=== PATIENT | female | born 1950 | race Caucasian/White ===

== ENCOUNTER 2025-03-28 08:24 | Outpatient (REF) | payer OTHER, SELFPAY | END 2025-03-28 08:25 | disposition home or self-care (01) | LOC: HO.HPHYSR 08:24 | PROVIDERS: PCP Internal Medicine; Visit Provider Physical Medicine & Rehabilitation | DX: M54.16 Radiculopathy, lumbar region (principal) | CPT/HCPCS: 64483; J2003; J3301; Q9967 ==

== ENCOUNTER 2025-03-28 08:24 | Outpatient (AMB) | payer OTHER, SELFPAY ==
--- NOTE | 2025-03-28 08:28 | A.PHYSOV ---
Vital Signs 03/28/25 08:30 Height 5 ft 6.5 in Weight 160 lb BMI 25.4 BP 152/90 H Pulse 80 Temp 97.9 F Intake Visit Reasons: Bilateral Lumbar Transforaminal Epidural L5 Allergies No Known Allergies Allergy (Verified 03/28/25 08:28) [facility] Medical History (Updated 03/28/25 @ 08:41 by Giles Mcclelland DO) Lumbar radiculitis Surgical History (Updated 03/28/25 @ 08:30 by Sari Jackson MA) History of thyroidectomy History of cholecystectomy Social History (Updated 03/28/25 @ 08:29 by Sari Jackson MA) Household Members: Spouse Alcohol intake: current Alcohol intake frequency: holidays/special occasions only Patient Tobacco Use Status: Never used Tobacco Current occupational status: retired Physical Exam Vital Signs: Last Vital Signs Temp 97.9 F 03/28/25 08:30 Pulse 80 03/28/25 08:30 BP 152/90 H 03/28/25 08:30 BMI result Body Mass Index 25.4 Office Procedures Procedure Details: Procedure performed: Bilateral L5 transforaminal epidural steroid injection Preop diagnosis: Lumbar radiculitis Postop diagnosis: The same Anesthesia: Local After informed consent was obtained, patient was placed on the procedure table in a prone position. Skin over lumbosacral area was prepped and draped in usual sterile manner. Right L5 pedicle was visualized utilizing fluoroscopy. 5 inch 22 gauge spinal needle was introduced percutaneously and advanced towards the pedicle at about 6 o'clock position. Once level of neural foramina was reached, needle placement was verified utilizing 3 cc of Omnipaque contrast solution. Excellent flow through the neural foramina and epidural spread was identified without evidence of vascular uptake. Total volume of 6 cc containing 2 cc of 1% lidocaine, 40 mg of triamcinolone and normal saline solution were injected after negative aspiration for blood and cerebrospinal fluid. Identical procedure was repeated on the opposite side. Radiation exposure was documented in the chart. 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 80 mg epidural 2 mL [id number] [employer] Total Dispensed Waste 2 mL 0 % lidocaine (PF) 10 mg/mL (1 %) injection solution Performing Provider: Giles Mcclelland DO Performing Location: [facility] Administered by: Giles Mcclelland DO on 03/28/25 08:41 Dose Route Admin Location Dispensed Lot Number Expiration Date [facility] Sw[employer] Maintenance Supervisor 50 mg epidural 5 mL [id number] [facility] Total Dispensed Waste 5 mL 0 % Omnipaque 300 300 mg iodine/mL intravenous solution Performing Provider: Giles Mcclelland DO [facility] Administered by: Giles Mcclelland DO on 03/28/25 08:[address]ose [address] Admin Location Dispensed Lot Number Expiration Date [facility] Swimming Pool Maintenance 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
[2025-03-28 08:30] VITALS: BP 152/90; PULSE 80; TEMP 36.6; BMI 25.4
--- OUTSIDE RECORDS SUMMARY | 2025-03-28 08:32 | XMS_ITS | Encounter Summary ---
Author Organization [facility] Address [address] [place] [address] Care Team Providers Care Manager Group Name Role Phone Jerrica Tejada MD Primary Care Provider [phone] Encounter Details Date Type Department Care Team (Late st Contact Info) Description 01/24/2025 Results Follow-Up Adult Medicine [facility] [address], [place] [phone] Jerrica Tejada MD [address], [place] Social History Tobacco Use Types Packs/Day Years Used Date Smoking Tobacco: Never Smokeless Tobacco: Never Alcohol Use Standard Drinks/Week Comments Yes 0 (1 standard drink = 0.6 oz pur e alcohol) Housing Instability Answer Date Recorde d Are you worried that in the next 2 months you may not have stable housing? No 06/28/2024 Food Access & Nutrition Answer Date Rec orded Do you have access to a vari ety of food including fruits and vegetables? Yes 06/28/2024 Health Literacy Answer Date Recorded How often do you need to hav e someone help you when you read instructions, pamphlets, or other written material from your doctor or pharmacy? Never 06/28/2024 Caregiver: How often do you need to have someone help you when you read instructions, pamphlets, or other written material from your doctor or pharmacy? Not on file 06/28/2024 Financial Risk Answer Date Recorded How hard is it for you to pa y for the very basics like food, housing, medical care, and air conditioning / heating? Patient declined 06/28/2024 Transportation Answer Date Recorded Has the lack of transportati on kept you from meetings, work, or from getting things needed for daily living? Patient declined 06/28/2024 Has the lack of transportati on kept you from medical appointments or from getting medications? Patient declined 06/28/2024 Social Isolation Answer Date Recorded How often do you feel lonely or isolated from th ose around you? Never 06/28/2024 Food Risk Answer Date Recorded Within the past 12 months we worried whether our food would run out before we got money to buy more. Never true 06/28/2024 Within the past 12 months th e food we bought just didn't last and we didn't have money to get more. Never true 06/28/2024 Dependent Care Answer Date Recorded Do you need help finding or paying for care for your loved ones. For example, children's aide or elderly care for an older adult? No 06/28/2024 Education Answer Date Recorded Do you think completing more education or training, like finishing a GED, going to college, or learning a trade, would be helpful for you? N/A 06/28/2024 Employment and Income Answer Date Recor ded During the last four weeks, have you been actively looking for work? No 06/28/2024 Living Situation Answer Date Recorded What is your living situation? Unrecognized valu e 06/28/2024 Comments Unknown Sex and Gender Information Value Date Recorded Sex Assigned at Not on file Legal Sex Female 6:57 PM EST Gender Identity Not on file Sexual Orientation Not on file documented as of this encounter Plan of Treatment Upcoming Encounters Date Type Department Care Team (Late st Contact Info) Description 07/25/2025 8:00 AM EDT Office Visit Adult Medicine [address] [phone] Fadia Whitman PA [address], [place] documented as of this encounter Visit Diagnoses Not on filedocumented in this encounter Additional Health Concerns Assessment Noted Time PHQ-9 Depression Total Score: 0 06/29/19 25 12:18 PM EDT documented as of this encounter Care Teams Manager Group Relationship Specialty Start Date End Date Jerrica Tejada MD [address] [place] [address] PCP - General 10/31/00 documented as of this encounter
--- OUTSIDE RECORDS SUMMARY | 2025-03-28 08:32 | XMS_ITS | Clinical Summary ---
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 07/12/2023 Active levothyroxine (SYNTHROID, LEVOTHROID) 100 mcg tablet Take 1 tablet (100 mcg total) by mouth 1 (one) time each day before breakfast. 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 Overview (01/23/2024): 02/2023 - REPEAT in 3 years Prediabetes 05/30/2021 Avulsion fracture of distal fibula 11/20/2019 Vitamin D deficiency 11/19/2018 Hypothyroidism 11/14/2018 Retinal hemorrhage 09/12/2012 Osteopenia 11/21/2008 Overview (01/23/2024): T-1.5 spine -1.3 hip 01/14 02/25 T score spine -1.0 hip -1.1 FRAX score 8.6% 10 year fracture risk 02/28 T score spine -1.0 hip -1.1 FRAX score 15% 10 year fracture risk Hypercholesteremia 07/18/2007 Overview (07/06/2024): ASCVD 17% (07/05/24) Mitral regurgitation 07/18/2007 Overview (01/23/2024): mild Urticaria 07/18/2007 Overview (01/23/2024): With angioedema Hx of thyroid cancer Overview (12/25/2024): Total thyroidectomy 09/25 History of squamous cell carcinoma of skin Overview (12/25/2024): SCC 05/24 left hand (in situ, at least) 04/23 right hand (moderately differentiated, superficially invasive) 08/16 left calf (in-situ) 09/08 left wrist/hand (keratoacanthoma type) History of actinic keratoses Overview (12/25/2024): Actinic keratosis 01/20 right hand (hypertrophic) Encounters Date Type Department Care Team Description 02/02/2025 Results Follow-Up [address] [phone] Jerrica Tejada MD 01/31/2025 10:45 AM EDT Office Visit [address] [phone] Jerrica Tejada MD Pharyngitis, unspecified etiology (Primary Dx); Acquired hypothyroidism; Hypercholesteremia; Prediabetes 01/31/2025 Nurse Triage [address] [phone] Jerrica Tejada MD 01/24/2025 8:45 AM EDT Office Visit [address] [phone] Jerrica Tejada MD Acquired hypothyroidism (Primary Dx); Hypercholesteremia; Prediabetes; Osteopenia, unspecified location; Vitamin D deficiency 01/24/2025 Results Follow-Up Adult [address] [phone] Jerrica Tejada MD from Last 3 Months Immunizations Immunization Administration Dates Next Due COVID-19 (Moderna/Spikevax) 12yo and older 01/13/2025,12/16/2023,01/09/2023 Influenza Quadravalent, 0.5m l (Fluzone High-dose) 65yo and older 01/09/2023,01/23/2022,03/19/2021 Influenza trivalent, 0.5mL ( Fluad) 65yo and older 12/16/2023,01/09/2023,01/23/2022,03/19,01/16/2020 Influenza trivalent, 0.5mL ( Fluzone High-dose) 65yo and older 01/13/2025,12/16/2023,01/16/2020,02/15 Moderna (age 6mo & older) Bi valent, COVID-19, 0.5 mL or 0.25 mL dosage 01/23/2022 Moderna SARS-CoV-2 COVID-19, mRNA, LNP-S, preservative free 01/09/2023 Pfizer (ages 12 & older) Biv alent, COVID-19 01/23/2022 Pneumococcal conjugate 13 va lent (Prevnar 13, PCV13) 2mo and older 11/02/2016 Pneumococcal polysaccharide 23 valent (Pneumovax 23) 2yo and older 12/25/2017 RSV, bivalent, protein subun it RSVpreF, 0.5mL, Preservative Free (Arexvy) 50yo and older 01/20/2023 Td Tetanus diptheria (Tdvax) 7yo and older 12/25/2017 Tdap Tetanus diptheria acell ular pertussis (Boostrix; Adacel) 7yo and older 02/19/2020,07/18/2007 Zoster Live 04/13/2012 Zoster recombinant (Shingrix ) 19yo and older 10/13/2020,02/14/2020 Surgical History Surgery Date Site/Laterality Comments COLONOSCOPY 01/2006 : negative CHOLECYSTECTOMY THYROIDECTOMY 09/13/2017 [facility] Medical History Medical History Date Comments Urticaria 07/18/2007 With angioedema Mitral regurgitation 07/18/2007 : mild Hypercholesteremia 07/18/2007 Osteopenia 11/21/2008 Retinal hemorrhage 09/12/2012 Actinic keratosis, hx of History of squamous cell car cinoma of skin 07/18/2007 SCC 05/24 left hand (in situ, at least) 04/23 right hand (moderately differentiated, superficially invasive) 08/16 left calf (in-situ) 09/08 left wrist/hand (keratoacanthoma type) History of actinic keratoses 05/24/2012 Act inic keratosis 01/20 right hand (hypertrophic) Hypothyroidism 11/14/2018 Vitamin D deficiency 11/19/2018 Hx of thyroid cancer Total thyro idectomy 09/25 Family History Medical History Relation Name Comments Coronary artery disease Brother x [address], HTN, HLD Hypertension Father mesothelioma Stroke Maternal Grandfather Stroke Maternal Grandmother Diabetes Mother CVA, HTN, HLD, heart valve problem Leukemia Paternal Grandfather Heart attack Paternal Grandmother +smoker Relation Name Status Comments Brother x 1 Father Maternal Grandfather Maternal Grandmother Mother Paternal Grandfather Paternal Grandmother Social History Tobacco Use Types Packs/Day Years Used Date Smoking Tobacco: Never Smokeless Tobacco: Never Tobacco Cessation:Counseling Given: Not Answered Alcohol Use Standard Drinks/Week Comments Yes 0 [...] care for your loved ones. For example, childcare director or elderly care for an older adult? [...] on file Sexual Orientation Not on file Obstetrics History Para Term AB IAB SAB Ectopic Multiple Livin g Live Births 1 1 1 1 Date Outcome GA Total Labor Labor/2nd/3rd Weight Sex Type Anes PTL Alissa A1 A5 Name Clin Term Last Filed Vital Signs Vital Sign Reading Time Taken Comments Blood Pressure 124/68 01/31/2025 10:47 AM EDT Pulse 88 01/31/2025 10:47 AM EDT Temperature 35.9 C (96.6 F) 01/31/2025 10:47 AM EDT Respiratory Rate 14 01/31/2025 10:47 AM EDT Oxygen Saturation 98% 01/31/2025 10:47 AM EDT Inhaled Oxygen Concentration - - Weight 73.6 kg (162 lb 3.2 oz) 01/31/2025 10:47 AM EDT Height 167.6 cm (5' 6 ) 01/31/2025 10:47 AM EDT Body Mass Index 26.18 01/31/2025 10:47 AM EDT Plan of Treatment Upcoming Encounters Date Type Department Care Team (Late st Contact Info) Description 07/25/2025 8:00 AM EDT Office Visit Adult Medicine [facility] [address] [place], [place] [phone] Fadia Whitman PA [address] [place], [place] Health Maintenance Due Date Last Done Comments Social Influencers of Health Screening 06/28/2025 06/28/2024 Falls Risk Assessment 07/05/2025 07/05/2024 COVID-19 Vaccine (9 - Pfizer risk season) 2025 01/13/2025, 12/16/2023, 01/09/2023, Additional history exists Colorectal Cancer Screening: Colonoscopy 02/15/2026 02/15/2023 Cholesterol Screening (Lipid Panel) 07/05/2029 07/05/2024, 07/06/2023 DTaP,Tdap,and Td Vaccines (4 - Td or Tdap) 02/18/2030 02/19/2020, 12/25/2017, 07/18/2007 Osteoporosis Screening (Bone Density Screening) 01/23/2034 01/24/2024, 01/24/2024, 02/16/2021, Additional history exists Hepatitis C Screening Completed 11/02/2016 Pneumococcal Vaccine: 50+ Years Completed 12/25/2017, 11/02/2016 Zoster Vaccines Completed 10/13/2020, 09/2019, 04/13/2012 RSV Immunization Adult Patients Completed 01/20/2023 Depression Screening Completed 06/28/2024 Breast Cancer Screening Discontinued 12/26/19, 12/18/2023, 12/18/2023, Additional history exists Influenza Vaccine Completed 01/13/2025, , 12/16/2023, Additional history exists Colorectal Cancer Screening: Stool Based Tests (FOBT/FIT) Discontinued HIB Vaccines Aged Out No longer eligi ble based on patient's age to complete this topic HPV Vaccines Aged Out No longer eligi ble based on patient's age to complete this topic Hepatitis A Vaccines Aged Out No long er eligible based on patient's age to complete this topic Hepatitis B Vaccines Aged Out No long er eligible based on patient's age to complete this topic IPV Vaccines Aged Out No longer eligi ble based on patient's age to complete this topic MMR Vaccines Aged Out No longer eligi ble based on patient's age to complete this topic Meningococcal ACWY Vaccine Aged Out N o longer eligible based on patient's age to complete this topic Meningococcal B Vaccine Aged Out No l onger eligible based on patient's age to complete this topic RSV Immunization Patients Under 20 months Aged Out No longer eligible based on patient's age to complete this topic Varicella Vaccines Aged Out No longer eligible based on patient's age to complete this topic Procedures Procedure Name Priority Date/Time Associated Diagnosis Comments STREP A PCR Routine 01/31/2025 11:21 AM EDT Pharyngitis, unspecified etiology RAPID STREP SCREEN WITH REFLEX CULTURE Routine 01/31/2025 Pharyngitis, unspecified etiology HEMOGLOBIN A1C Routine 01/24/2025 9:08 AM EDT Prediabetes MG MAMMO DIGITAL SCREENING W [place] BILAT Routine 12/25/2024 8:00 AM EDT Encounter for screening mammogram for breast cancer LIPID PANEL WITH REFLEX TO DIRECT LDL Routine 07/05/2024 10:36 AM EDT Hypercholesteremia DXA BONE DENSITY STUDY 1+ SITS AXIAL SKEL Routine 01/24/2024 10:56 AM EDT Other specified disorders of bone density and structure, unspecified site COLONOSCOPY Routine 02/15/2023 HEPATITIS C SCREENING Routine 11/02/2016 from Last 3 Months or Most Recently Relevant to Health Maintenance Results * Strep A molecular study (01/31/2025 11:21 AM EDT) GRP A Strep PCR Not Detected Not Detected LAB MICROBIOLOGY METHOD 01/31/2025 9:00 PM EDT [facility] Swab Structure of anterior region of neck / Unknown Non-blood Collection / Unknown 01/31/2025 11:21 AM EDT 01/31/2025 11:21 AM EDT us Jerrica Tejada MD LAB MICROBIOLOGY - GENERAL ORDER TANI Final Result Performing Organization Address City/[facility]/ZIP Co de Phone Number [facility] [address] [place] [address], [place] [phone] * Rapid strep screen with reflex culture (01/31/2025) Swab Structure of anterior region of neck / Unknown 01/31/2025 us Jerrica Tejada MD LAB MICROBIOLOGY - GENERAL ORDER TANI Final Result Performing Organization Address City/[facility]/ZIP Co de Phone Number EXTERNAL LAB (NON-INTERFACED) * Hemoglobin A1c (01/24/2025 9:08 AM EDT) Hemoglobin A1C 5.8 <6.5 % LAB CHEMISTRY METHOD 01/24/2025 12:37 PM EDT [facility] Mean Bld Glu Estim. 120 mg/dL LAB CHEMISTRY METHOD 01/24/2025 12:37 PM EDT [facility] Blood Venous blood specimen / Unknown Venipuncture / Unknown 01/24/2025 9:08 AM EDT 01/24/2025 9:08 AM EDT us Jerrica Tejada MD LAB BLOOD ORDERABLES Final Resul t Performing Organization Address City/[facility]/ZIP Co de Phone Number [facility] [address] [place] [address], [place] [phone] * MG Mammo Digital Screening w [place] bilat (12/25/2024 8:00 AM EDT) Anatomical Region Laterality Modality Breast Bilateral Mammography 12/26/2024 11:2 1 AM EDT Impressions 12/26/2024 11:24 AM EDT No mammographic evidence for malignancy. BI-RADS CATEGORY: 1 - NEGATIVE RECOMMENDATION: Screening bilateral mammogram is recommended in 1 year. Mammo Location: [facility], [address] [place] [address], [id number], . -------- FINAL REPORT -------- Dictated By: Lor Pinto Dictated Date: 12/26/2024 11:21 ET Assigned Physician: Lor Pinto Reviewed and Electronically Signed By: Lor Pinto Signed Date: 12/26/2024 11:24 ET Workstation ID: [id number] Transcribed By: Self Edit Transcribed Date: 12/26/2024 11:21 ET Narrative 12/26/2024 11:24 AM EDT Bilateral mammogram. CLINICAL: 74 years old, Female, routine annual exam. COMPARISON: Prior studies, latest from 12/18/2023. TECHNIQUE: Bilateral MLO and CC views were obtained digitally with 2-D C views and 3-D mammogram (digital breast tomosynthesis). Computer-aided detection was utilized in evaluation of this exam (CAD). FINDINGS: There is no evidence of suspicious mass or architectural distortion. No worrisome calcifications are evident. There has been no significant change from prior exam(s). BREAST DENSITY: B - There are scattered areas of fibroglandular density. Procedure Note Lor Pinto MD - 12/26/2024 Bilateral mammogram. CLINICAL: 74 years old, Female, routine annual exam. COMPARISON: Prior studies, latest from 12/18/2023. TECHNIQUE: Bilateral MLO and CC views were obtained digitally with 2-D Cviews and 3-D mammogram (digital breast tomosynthesis). Computer-aideddetection was utilized in evaluation of this exam (CAD). FINDINGS: There is no evidence of suspicious mass or architectural distortion. Noworrisome calcifications are evident. There has been no significantchange from prior exam(s). BREAST DENSITY: B - There are scattered areas of fibroglandular density. IMPRESSION: No mammographic evidence for malignancy. BI-RADS CATEGORY: 1 - NEGATIVE RECOMMENDATION: Screening bilateral mammogram is recommended in 1 year. Mammo Location: [facility], [address] [place] [address], [id number], . -------- FINAL REPORT -------- Dictated By: Lor Pinto Dictated Date: 12/26/2024 11:21 ET Assigned Physician: Lor Pinto Reviewed and Electronically Signed By: Lor Pinto Signed Date: 12/26/2024 11:24 ET Workstation ID: [id number] Transcribed By: Self Edit Transcribed Date: 12/26/2024 11:21 ET Jerrica Tejada MD IMG BI PROCEDURES Final Result * (ABNORMAL) Lipid panel with reflex to direct LDL (07/05/2024 10:36 AM EDT) Cholesterol 194 0 - 200 mg/dL LAB CHEMISTRY METHOD 07/05/2024 2:50 PM EDT [facility] Triglycerides 63 0 - 150 mg/dL LAB CHEMISTRY METHOD 07/05/2024 2:50 PM EDT [facility] HDL 66 >=40 mg/dL LAB CHEMISTRY METHOD 07/05/2024 2:50 PM T [facility] LDL Calculated 115(H) 0 - 100 mg/dL LAB CHEMISTRY METHOD 07/05/2024 2:50 PM [facility] VLDL Cholesterol Ocho[place] 12.6 mg/dL LAB CHEMISTRY METHOD 07/05/2024 2:50 PM T [facility] Non HDL Chol. (LDL+VLDL) 128 <145 mg/dL LAB CHEMISTRY METHOD 07/05/2024 2:50 PM T [facility] Chol/HDL Ratio 2.9 0.0 - 4.4 LAB CHEMISTRY METHOD 07/05/2024 2:50 PM [facility] Blood Venous blood specimen / Unknown Venipuncture / Unknown 07/05/2024 10:36 AM EDT 07/05/2024 10:36 AM EDT us Fadia ESPINOZA LAB BLOOD ORDERABLES Final Re sult [facility] [address] [place] [address], * DXA BONE DENSITY STUDY 1+ SITS AXIAL SKEL (01/24/2024 10:56 AM EDT) Anatomical Region Laterality Modality Bone Densitometr y 07/05/2023 1:36 PM EDT Narrative 01/25/2024 2:20 PM EDT BONE DENSITY Lumbar Spine T-score is -0.8 (SD relative to 20-29 y/o adult) Z-score is +1.7 (SD relative to age matched peers) This is normal by criteria defined by the WHO. Left Hip T-score is -1.0 Z-score is +0.9 This is normal by criteria defined by the WHO. Comparison exam(s): significant increase in bone density of lumbar spine when compared to most recent bone density examination Confidence level is +/-95%. Impression: Based on the World Health Organization criteria, Choco Balbuena should be classified as having normal bone density. Risk Assessment) [facility] Department of Internal Medicine recommends using National Osteoporosis Foundation (NOF) guidelines in treatment decisions related to osteoporosis. NOF guidelines suggest considering treatment for postmenopausal women and men aged 50 or older presenting with the following: History of hip or vertebral fracture. T-score less than or equal to -2.5 (DXA) at the femoral neck, total hip, or spine, after appropriate evaluation to exclude secondary causes. Low bone mass (T-score between -1.0 and -2.5 at the femoral neck or spine) AND a 10-year probability of a hip fracture greater than or equal to 3% OR a 10-year probability of a major osteoporosis-related fracture greater than or equal to 20% based on the [place]-adapted WHO algorithm Please note that all treatment decisions require clinical judgment and consideration of individual patient factors, including patient preferences, co-morbidities, previous drug use, risk factors not captured in the FRAX model (e.g., frailty, falls, vitamin D deficiency, increased bone turnover, interval significant decline in bone density) and possible under- or over-estimation of fracture risk by FRAX. Procedure Note Lor Pinto MD - 02/06/2024 BONE DENSITY Lumbar Spine T-score is -0.8 (SD relative to 20-29 y/o adult) Z-score is +1.7 (SD relative to age matched peers) This is normal by criteria defined by the WHO. Left Hip T-score is -1.0 Z-score is +0.9 This is normal by criteria defined by the WHO. Comparison exam(s): significant increase in bone density of lumbar spinewhen compared to most recent bone density examination Confidence level is +/-95%. Impression: Based on the World Health Organization criteria, Choco Balbuena should beclassified as having normal bone density. Risk Assessment) [facility] Department of Internal Medicine recommendsusing National Osteoporosis Foundation (NOF) guidelines in treatmentdecisions related to osteoporosis. NOF guidelines suggest consideringtreatment for postmenopausal women and men aged 50 or older presentingwith the following: History of hip or vertebral fracture. T-score less than or equal to -2.5 (DXA) at the femoral neck, total hip,or spine, after appropriate evaluation to exclude secondary causes. Low bone mass (T-score between -1.0 and -2.5 at the femoral neck or spine)AND a 10-year probability of a hip fracture greater than or equal to 3% ORa 10-year probability of a major osteoporosis-related fracture greaterthan or equal to 20% based on the [place]-adapted WHO algorithm Please note that all treatment decisions require clinical judgment andconsideration of individual patient factors, including patientpreferences, co-morbidities, previous drug use, risk factors not capturedin the FRAX model (e.g., frailty, falls, vitamin D deficiency, increasedbone turnover, interval significant decline in bone density) and possibleunder- or over-estimation of fracture risk by FRAX. us Fadia ESPINOZA IMG DXA PROCEDURES Final Resu lt * Colonoscopy (02/15/2023) [facility] Colonoscopy no interpretation , abstracted Anatomical Region Laterality Modality Other us Historical Provider HEALTH MAINTENANCE Final Result * Hepatitis C Screening (11/02/2016) Hepatitis C Screening abstracted us Historical Provider HEALTH MAINTENANCE Final Result from Last 3 Months or Most Recently Relevant to Health Maintenance Insurance [facility] Care Teams Licensed Land Surveyor Relationship Specialty Start Date End Date Jerrica Tejada MD [address] [place] [phone] PCP - General 10/31/00
--- OUTSIDE RECORDS SUMMARY | 2025-03-28 08:32 | XMS_ITS | Encounter Summary ---
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 For example, child care attendant or elderly care for an older adult? [...] 8:00 AM EDT Office Visit Adult Medicine [address] [phone] Fadia Whitman PA [address] [place], [place] documented as of this encounter Visit Diagnoses Not on filedocumented in this encounter Additional Health Concerns Assessment Noted Time PHQ-9 Depression Total Score: 0 06/29/19 25 12:18 PM EDT documented as of this encounter Care Teams Low Raw Sugar Cutter Relationship Specialty Start Date End Date Jerrica Tejada MD [address] [place] [phone] PCP - General 10/31/00 documented as of this encounter
== END 2025-03-28 09:16 | disposition home or self-care (01) ==
LOC: HO.HPHYS 08:25
PROVIDERS: PCP Internal Medicine; Visit Provider Physical Medicine & Rehabilitation
DX: M54.16 Radiculopathy, lumbar region (principal)
CPT/HCPCS: 64483